=== PATIENT | male | born 1940 | race Hispanic/Latino ===

== ENCOUNTER 2018-01-18 09:54 | Outpatient (CLI) | payer MEDICARE ==
--- NOTE | 2018-01-18 15:53 | XRay Report ---
XRAY BILATERAL KNEE THREE VIEWS EACH: 01/18/18 09:54:00 CLINICAL: Bilateral knee pain FINDINGS: Right: Narrowing of the medial joint space with small osteophytes. Slight widening of the lateral joint space. Patellofemoral osteophytes. No fracture or dislocation. No joint effusion. Vascular calcifications. Left: Complete loss of the medial joint space with large osteophytes. Widening of the lateral joint space. Patellofemoral osteophytes. No fracture or dislocation. No joint effusion.Normal soft tissues. 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
== END 2018-01-18 09:55 | disposition home or self-care (01) ==
LOC: SPVIMAG 09:54
PROVIDERS: ATTEND Orthopaedic Surgery Sports Medicine
DX: M17.0 Bilateral primary osteoarthritis of knee (principal); M25.861 Other specified joint disorders, right knee